=== PATIENT | male | born 1990 ===

== ENCOUNTER 2022-07-06 15:48 | Emergency (ER) | payer OTHER, MEDICAID ==
[2022-07-06] MEDS ORDERED: Diphtheria,Pertussis(Acell),Tetanus Vaccine 0.5 ML Syringe IM ONE (15:55)
[2022-07-06 16:31] LABS: CARBON DIOXIDE,CO2 22.2 mmol/L (21.0-32.0); POTASSIUM,K 3.5 mmol/L (3.5-5.1)
[2022-07-06] MEDS ORDERED: Iopamidol 755 MG/ML 500 ML Multipack Bottle IVPUSH STA (17:07)
== END 2022-07-06 19:31 | disposition home or self-care (01) ==
LOC: EDBD 15:48 → MW.ED 15:48
DX: S32.028A Other fracture of second lumbar vertebra, initial encounter for closed fracture (principal); S32.048A Other fracture of fourth lumbar vertebra, initial encounter for closed fracture; S32.038A Other fracture of third lumbar vertebra, initial encounter for closed fracture; S40.811A Abrasion of right upper arm, initial encounter; Z23 Encounter for immunization; V29.9XXA Motorcycle rider (driver) (passenger) injured in unspecified traffic accident, initial encounter; Y92.410 Unspecified street and highway as the place of occurrence of the external cause
CPT/HCPCS: 36415; 70450; 71260; 72125; 72128; 72131; 74177; 80053; 80307; 84484; 85025; 85610; 85730; 90471; 90715; 93005; 99284; Q9967; 93010; 99285